=== PATIENT | female | born 1935 | race Caucasian/White ===

== ENCOUNTER → 2016-12-08 | Outpatient (CLI) | payer OTHER, MEDICARE ==
[~2016-12-08] VITALS: Ht 167.6 cm; Wt 71.8 kg
[~2016-12-08] MED LIST: COLACE100 MG PO; DESYREL50 MG PO; DICLOFENAC POTA50 MG PO; EYE DROP FOR GLAUCOM; HYDROCODON-ACE1 EAC8 PO; KEFLEX500 MG PO; METAMUCIL283 GM PO; NEURONTIN 300300 M1 PO; NORTRIPTYLINE H25 M3 PO; SYNTHROID75 MCG PO; TRAMADOL 50 MG50 MG PO; TRAVATAN 0.004%5 ML OP; TRAZODONE HCL50 MG PO; ULTRAM 50MG TAB50 MG PO; VITAMIN D32000 UNIT PO; XALATAN2.5 ML OP; ZANAFLEX4 MG PO
--- NOTE | ~2016-12-08 | HPC ---
[facility] [address] [place] [address] PAIN MANAGEMENT CONSULTATION Name: SHAYDELICIA R Room #: REG CL Agustín#: [id number] Admission: 12/08/16 Attend Phys: Melvin Meyer DO Discharge: Date of : 33 Report #: [id number] THIS REPORT FOR: //name// CC: Melvin MONTALVO BOX Edwardo Box DATE OF SERVICE: 12/08/2016 DATE OF SERVICE: CHIEF COMPLAINT: Mid back pain. HISTORY OF PRESENT ILLNESS: As you know, the patient is an 81-year-old female, who was referred back to our clinic on 11/24/2016 with increasing mid back pain. The patient reported the pain began spontaneously and progressively worsened. She was unable to elicit any specific injury or trauma until later on in our conversation when she indicated that she had a slip and fall injury, falling backwards, where she believes her pain may intent began. She was sent for x-ray imaging for which she returns to review today. There was concern the patient had suffered vertebral compression fractures, given the distribution of symptoms and the fall backwards with instantaneous pain. She was sent for x-ray imaging. She returns today to review the findings. Surprisingly, her pain at today's evaluation is 0/10. She states that the medications provided at her last visit in the form of tizanidine and diclofenac has been successful in alleviating pain. ALLERGIES: No known drug allergies. CURRENT MEDICATIONS: Trazodone, Travatan, levothyroxine, diclofenac and tizanidine. SOCIAL HISTORY: The patient denies tobacco, IV or illicit drug use. Admits to numerous alcohol beverages per day. She is retired. She is unaccompanied today. IMAGING: X-ray of the thoracic spine shows wedging deformities at T6 and T7, which is indicative of a vertebral compression fracture. Alignment appears normal. Vascular calcifications seen throughout. Kyphoplasty changes noted at L2. PHYSICAL EXAMINATION: VITAL SIGNS: Blood pressure 149/79, pulse 65, respiratory rate 20, unlabored. The patient is 100% on room air. Height 5 feet 6 inches tall, weight 158.4 pounds, BMI calculated 25.6. GENERAL: Well-developed, well-nourished, well-hydrated 81-year-old female [place] [id number] PAIN MANAGEMENT CONSULTATION Name: DELICIA DAY Room #: REG [facility]#: [id number] Admission: 12/08/16 Attend Phys: Melvin Meyer DO Discharge: Date of : 33 Report #: [id number] appearing stated age. Pain is rated at 0/10. HEENT: Normocephalic, atraumatic. Pupils equal, round, reactive to light. Extraocular muscles are intact. Sclerae nonicteric, without injection. The patient remains a poor historian. EXTREMITIES: Show no clubbing, no cyanosis, no edema. MUSCULOSKELETAL: There is no palpatory tenderness noted today over the paraspinal musculature of the thoracic spine. There is some spinous process tenderness over the T6, T7 and T8 level. Upper extremity strength, lower extremity strength is symmetrical, intact to light touch from T1 through T12 dermatomes. ASSESSMENT: 1. T6 and T7 vertebral compression fractures. 2. Myofascial pain. 3. Muscle spasms of the thoracic spine. PLAN: 1. The patient has returned today in followup visit where we have reviewed a recent x-ray imaging. Unfortunately, I have to advise the patient that she appears to have suffered compression fractures at T6 and T7. These are mild, but are present. We had a long discussion today about the treatment options for compression fractures of the vertebral spine. These would include physical therapy, stretching exercises, core strengthening and reduction of weight and lifting to reduce this the potential of a recurrent fracture. We discussed TLSO bracing of the prior gold standard of care. We also discussed vertebroplasty and kyphoplasty procedures at this time, the patient wishes to remain conservative. She wishes no interventional treatment. She does not want to begin with a TLSO brace. She states the medication she is on is providing analgesia and she will be "careful." I did advise the patient if she begins to increase back pain, she is to contact her primary care physician to undergo a lateral thoracic x-rays. This will determine if the compression fractures at T6-T7 have progressed or new fractures have developed. As you are aware 2 vertebral compression fractures that are concurrent lead to a 12 fold increase of fractures occurring above or below these fractures spontaneously. We will need to watch for increasing back pain in this patient's case. 2. The patient has diclofenac available as well as tizanidine. She is utilizing the medication appropriately. She does not need refills at this time. 3. We will see the patient back in followup visit on an as needed basis. Again, we have advised the patient if she increases pain, specifically over the mid back area, she is to contact her primary care physician to undergo x-ray imaging as quickly as possible and return to our clinic with findings. By: [id number] 1440 Melvin Meyer DO /nt
[2016-12-08 09:29] VITALS: BP 149/79
== END | disposition home or self-care (01) ==
LOC: PAIN 06:58
DX: S22.060A Wedge compression fracture of T7-T8 vertebra, initial encounter for closed fracture (principal); G89.29 Other chronic pain; M79.1 Myalgia; X58.XXXA Exposure to other specified factors, initial encounter; Y93.89 Activity, other specified; Y92.89 Other specified places as the place of occurrence of the external cause; Y99.8 Other external cause status; Z87.891 Personal history of nicotine dependence

== ENCOUNTER → 2017-01-13 | Outpatient (CLI) | payer OTHER, MEDICARE | LOC: MRI 03:34 | DX: M48.54XA Collapsed vertebra, not elsewhere classified, thoracic region, initial encounter for fracture (principal); M54.10 Radiculopathy, site unspecified ==

== ENCOUNTER → 2017-01-26 | Outpatient (CLI) | payer OTHER, MEDICARE ==
[~2017-01-26] VITALS: Ht 167.6 cm; Wt 68.9 kg
--- NOTE | ~2017-01-26 | HPC ---
[address] [address] PAIN MANAGEMENT CONSULTATION Name: DELICIA DAY Room #: REG [facility]#: [id number] Admission: 01/26/17 Attend Phys: Melvin Meyer DO Discharge: Date of : 33 Report #: [id number] THIS REPORT FOR: //name// CC: Melvin Ornelas MD DATE OF SERVICE: 01/26/2017 DATE OF SERVICE: 01/26/2017 CHIEF COMPLAINT: Mid back pain. HISTORY OF PRESENT ILLNESS: As you know, the patient is an 81-year-old female, who returns today in followup visit with continued mid back pain. She was sent for x-ray imaging last visit where it shows vertebral compression fractures that are healed. She is left with continued mid back pain for which she places pain score today at 0/10. She states when her pain is present, it is sharp and aching in sensation, exacerbated with activity and improves with medications. She indicates no specific injury or trauma to her mid back area, though she does show compression fractures on x-ray imaging, specifically at T6-T7 underlying the exact site of the patient's ongoing pain issues. She returns today to discuss if there are treatment options available to improve her axial mid thoracic pain. ALLERGIES: No known drug allergies. CURRENT MEDICATIONS: Tizanidine 4 mg q. 8 hours p.r.n., diclofenac sodium 50 mg 3 times a day, trazodone 50 mg 2 tabs p.o. at bedtime, travoprost 1 drop each eye per day, levothyroxine 75 mcg per day. SOCIAL HISTORY: The patient denies current tobacco use. Denies IV or illicit drug use. Admits to numerous alcohol beverages per day. She is retired. She is unaccompanied today. IMAGING: X-ray of the thoracic spine obtained 01/13/2017, shows T6 compression fracture appearing chronic, T7 compression fracture appearing chronic. No evidence of acute marrow edema, thoracic cord is normal. Paraspinal musculature normal. PHYSICAL EXAMINATION: VITAL SIGNS: Blood pressure 144/61, pulse 74, respiratory rate 16, unlabored. The patient is 100% on room air, height 5 feet 6 inches tall, weight 152 pounds, BMI calculated 24.5. GENERAL: Well-developed, well-nourished, well-hydrated 81-year-old female appearing stated age, placing current pain score 0/10. [place] [address] PAIN MANAGEMENT CONSULTATION Name: DELICIA DAY Room #: REG CLI [facility]#: [id number] Admission: 01/26/17 Attend Phys: Melvin Meyer DO Discharge: Date of : 33 Report #: [id number] HEENT: Normocephalic, atraumatic. Pupils equal, round, reactive to light. Extraocular muscles are intact. Sclerae nonicteric without injection. NEUROLOGIC: Cranial nerves 2-12 grossly intact. Speech is fluent. The patient deemed a poor historian. LUNGS: Clear, no wheeze, rhonchi or rales. CARDIOVASCULAR: Regular. No appreciable gallop or rub. ABDOMEN: Soft, nontender, nondistended. EXTREMITIES: Show no clubbing, no cyanosis, no edema. MUSCULOSKELETAL: Again, there is palpatory tenderness over the paraspinal musculature of the thoracic region. This appears to be myofascial in origin. There is no spinous process tenderness. No ecchymosis, no changes in skin color, texture over the area of discomfort. Upper extremity strength, lower extremity strength is equal and symmetrical. Deep inhalation and exhalation does not change overall pain. ASSESSMENT: 1. Thoracic myofascial pain. 2. Aged vertebral compression fractures at T6 and T7, muscle spasms of the thoracic spine, chronic intractable pain. PLAN: 1. The patient returns today in followup visit where we have discussed the findings on x-ray imaging. I am pleased to tell the patient, there are no new acute fractures or bony abnormalities. It appears the patient is suffering from chronic issues involving myofascial tissue. I have discussed with the patient that options for treatment would include physical therapy, stretching exercises, core strengthening. This in conjunction with a concerted effort at maintaining exercise programs to maintain strength and mobility. Also changes in her posture on a daily basis should improve symptoms. Obviously medication management appears to be working effectively, as the patient is now placing pain score 0/10. We have discussed this with the patient today. There is no interventional treatments were injections that might help the symptoms, as the patient has well-healed old vertebral compression fractures. 2. The patient will continue on current medication. There is no need for changes at this time. I have offered to the patient a referral to physical therapy. She is going to consider her options. She wishes to discuss further with her PCP in regards to treatment. At this time, no interventional treatments are suggested or recommended. Certainly physical therapy would be beneficial, will be available to have the patient discuss this at followup visit if she wishes. <ELECTRONICALLY SIGNED> By: Melvin Meyer DO 02/03/17 0935 [id number] Melvin Meyer DO /nt
[2017-01-26 09:23] VITALS: BP 144/61
== END | disposition home or self-care (01) ==
LOC: PAIN 06:48
DX: M48.54XA Collapsed vertebra, not elsewhere classified, thoracic region, initial encounter for fracture (principal); M62.838 Other muscle spasm; G89.29 Other chronic pain; Z87.891 Personal history of nicotine dependence

== ENCOUNTER → 2017-04-08 | Outpatient (CLI) | payer OTHER, MEDICARE | LOC: MRI 12:30 | DX: S83.242A Other tear of medial meniscus, current injury, left knee, initial encounter (principal); M17.12 Unilateral primary osteoarthritis, left knee; M25.462 Effusion, left knee; M71.22 Synovial cyst of popliteal space [Baker], left knee; X58.XXXA Exposure to other specified factors, initial encounter; Y93.89 Activity, other specified; Y92.89 Other specified places as the place of occurrence of the external cause; Y99.8 Other external cause status ==

== ENCOUNTER 2017-04-20 06:54 | Day surgery (SDC) | payer OTHER, MEDICARE ==
[~2017-04-20] VITALS: Ht 167.6 cm; Wt 70.3 kg
--- NOTE | ~2017-04-20 | O ---
[facility] [place] [address] [place] [address] OPERATIVE REPORT Name: DELICIA DAY Room #: 150-10 [facility]..#: [id number] Admission: 04/20/17 Attend Phys: Johny Ramirez MD Discharge: Date of : 33 Report #: [id number] THIS REPORT FOR: //name// CC: Edwardo Ramirez DATE OF SERVICE: 04/20/2017 PREOPERATIVE DIAGNOSIS: Left knee medial meniscus tear. 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 PROCEDURE: Left knee arthroscopy and chondroplasty medial femoral condyle. SURGEON: Johny Ramirez MD. ACCESS TECH: BARRY Pro. ANESTHETIC: Spinal. INDICATIONS: See hospital history and physical. DESCRIPTION OF PROCEDURE: After adequate general anesthesia had been obtained, the patient's left lower extremity was prepped and draped in the usual meticulous sterile fashion. Limb was exsanguinated with gravity, tourniquet inflated to 350 torr. Superomedial portal was established by first infiltrating with 0.5% Naropin, then making a stab incision with an 11 blade. Inflow cannula placed. The knee was insufflated with fluid. Anterolateral and anteromedial portals were established utilizing the same technique. Complete diagnostic arthroscopy was performed. Medial compartment demonstrated a flap tear posterior horn of the meniscus. This was debrided with baskets and suyapa to a stable rim. 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 This lesion was smoothed with a shaver. Cruciate ligaments were intact. Lateral compartment unremarkable. Patellofemoral compartment demonstrated minor surface wear, but no unstable chondral fragments. At this time, the knee was irrigated copiously and 0.5% Naropin was infiltrated [address] [address] OPERATIVE REPORT Name: DELICIA DAY Room #: 150-10 [facility]#: [id number] Admission: 04/20/17 Attend Phys: Johny Ramirez MD Discharge: Date of : 33 Report #: [id number] in the knee. The portals were closed with 4-0 nylon. Sterile compressive was complied. Tourniquet deflated. By: 1516 1531 Johny Ramirez MD /nt
[~2017-04-20 06:54] MED LIST changes: +HYDROCODONE-AP1 EAC6 PO; +LEVOTHYROXINE 0.1 MG PO; +NABUMETONE 500500 M1 PO; +VITAMIN D1000 UNI1 PO
[2017-04-20 12:30] VITALS: BP 165/69
[2017-04-20 13:58] LABS: PROTIME 10.4 Seconds (9.3-11.4)
[2017-04-20 15:47] VITALS: BP 165/69
[2017-04-20 17:25] VITALS: BP 179/62
[2017-04-20 19:41] VITALS: BP 166/65
== END 2017-04-20 21:00 | disposition home or self-care (01) ==
LOC: OR 06:54 → TBA 06:54 → OR 09:50 → 3N 17:24 → OR 21:00
PROVIDERS: Anesthesiology
DX: S83.242A Other tear of medial meniscus, current injury, left knee, initial encounter (principal); M94.262 Chondromalacia, left knee; X58.XXXA Exposure to other specified factors, initial encounter; Y93.89 Activity, other specified; Y92.89 Other specified places as the place of occurrence of the external cause; Y99.8 Other external cause status
CPT/HCPCS: 50101; 50405; 50612; 51038; 54170; 56526; 62110; 62850; 65085; 70005

== ENCOUNTER → 2017-06-07 | Outpatient (CLI) | payer OTHER, MEDICARE | LOC: HYPER 06-04 09:56 | DX: T81.31XA Disruption of external operation (surgical) wound, not elsewhere classified, initial encounter (principal); L97.512 Non-pressure chronic ulcer of other part of right foot with fat layer exposed; M19.90 Unspecified osteoarthritis, unspecified site; F32.9 Major depressive disorder, single episode, unspecified; Z98.49 Cataract extraction status, unspecified eye; Z87.891 Personal history of nicotine dependence; Z72.89 Other problems related to lifestyle; Y83.8 Other surgical procedures as the cause of abnormal reaction of the patient, or of later complication, without mention of misadventure at the time of the procedure; Y92.89 Other specified places as the place of occurrence of the external cause ==

== ENCOUNTER → 2017-06-15 | Outpatient (CLI) | payer OTHER, MEDICARE | LOC: HYPER 07:06 | DX: T81.31XD Disruption of external operation (surgical) wound, not elsewhere classified, subsequent encounter (principal); L97.512 Non-pressure chronic ulcer of other part of right foot with fat layer exposed; M19.90 Unspecified osteoarthritis, unspecified site; F32.9 Major depressive disorder, single episode, unspecified; Z98.49 Cataract extraction status, unspecified eye; Z87.891 Personal history of nicotine dependence; Z72.89 Other problems related to lifestyle; Y83.8 Other surgical procedures as the cause of abnormal reaction of the patient, or of later complication, without mention of misadventure at the time of the procedure ==

== ENCOUNTER → 2017-06-21 | Outpatient (CLI) | payer OTHER, MEDICARE | LOC: HYPER 06:57 | DX: T81.31XD Disruption of external operation (surgical) wound, not elsewhere classified, subsequent encounter (principal); L97.512 Non-pressure chronic ulcer of other part of right foot with fat layer exposed; M19.90 Unspecified osteoarthritis, unspecified site; F32.9 Major depressive disorder, single episode, unspecified; Z98.49 Cataract extraction status, unspecified eye; Z87.891 Personal history of nicotine dependence; Z72.89 Other problems related to lifestyle; Y83.8 Other surgical procedures as the cause of abnormal reaction of the patient, or of later complication, without mention of misadventure at the time of the procedure ==

== ENCOUNTER → 2017-07-05 | Outpatient (CLI) | payer OTHER, MEDICARE | LOC: HYPER 06:58 | DX: T81.31XA Disruption of external operation (surgical) wound, not elsewhere classified, initial encounter (principal); L97.512 Non-pressure chronic ulcer of other part of right foot with fat layer exposed; F32.9 Major depressive disorder, single episode, unspecified; M19.90 Unspecified osteoarthritis, unspecified site; Z87.891 Personal history of nicotine dependence; Z72.89 Other problems related to lifestyle; Y83.8 Other surgical procedures as the cause of abnormal reaction of the patient, or of later complication, without mention of misadventure at the time of the procedure ==

== ENCOUNTER 2018-07-29 08:14 | Emergency (ER) | payer OTHER, MEDICARE ==
[~2018-07-29] VITALS: Ht 167.6 cm; Wt 70.3 kg
[2018-07-29] MEDS ORDERED: TRAMADOL 50 MG50 MG PO (09:09)
[2018-07-29] MEDS ORDERED: KEFLEX500 M1 PO (09:09)
[2018-07-29 09:37] VITALS: BP 121/87
== END 2018-07-29 09:38 | disposition home or self-care (01) ==
LOC: ER 08:14
DX: M67.471 Ganglion, right ankle and foot (principal); E03.9 Hypothyroidism, unspecified; Z87.891 Personal history of nicotine dependence; Z90.49 Acquired absence of other specified parts of digestive tract; Z90.89 Acquired absence of other organs; Z90.710 Acquired absence of both cervix and uterus; Z98.890 Other specified postprocedural states

== ENCOUNTER → 2019-07-25 | Outpatient (CLI) | payer OTHER, MEDICARE ==
[~2019-07-25] MED LIST changes: +KEFLEX500 M1 PO
== END ==
LOC: MRI 10:05
DX: M47.816 Spondylosis without myelopathy or radiculopathy, lumbar region (principal); M51.25 Other intervertebral disc displacement, thoracolumbar region; M51.26 Other intervertebral disc displacement, lumbar region; M12.88 Other specific arthropathies, not elsewhere classified, other specified site; M48.062 Spinal stenosis, lumbar region with neurogenic claudication; M25.78 Osteophyte, vertebrae

== ENCOUNTER → 2019-10-17 | Outpatient (CLI) | payer OTHER, MEDICARE ==
--- NOTE | ~2019-10-17 | EKG ---
[facility] [place] [address] [facility] [place] [address] ELECTROCARDIOGRAM REPORT Name: SHAYSLICKDELICIA R Room #: REG CLI [facility].#: [id number] Admission: 10/17/19 Attend Phys: Edwardo Ornelas MD Discharge: Date of : 33 Report #: [id number] THIS REPORT FOR: cc: Edwardo Ornelas MD, Mark S. MD Epiphany,Gilbert GAUTAM ~ THIS REPORT FOR: //name// [facility] Test Date: 2019-10-17 Test Time: 11:38:45 Pat Name: DELICIA DAY Department: Room: Gender: F Reading Interventionist: Angelica TERRY : 1935 Requested By: Edwardo Ornelas Order Number: [id number] MD: Measurements Intervals Strang Rate: 66 P: 72 OR: 199 QRS: 71 QRSD: 137 T: 26 QT: 446 QTc: 468 Interpretive Statements Sinus arrhythmia Right bundle branch block Compared to ECG 10/30/2015 10:28:57 Sinus rhythm no longer present [email or web address] By: 1138 1138 Epiphany MD Gilbert /EPI
== END ==
LOC: CV 11:09
DX: Z01.818 Encounter for other preprocedural examination (principal)

== ENCOUNTER → 2021-07-23 | Day surgery (SDC) | payer OTHER, MEDICARE ==
[~2021-07-23] VITALS: Ht 167.6 cm; Wt 69.9 kg
[~2021-07-23] MED LIST changes: +HYDROCODON-ACE1 EAC7 PO; +LEVOTHYROXINE75 MCG PO; +NORVASC5 MG PO; +PRESERVISION A1 EAC2 PO; +TIMOLOL MALEATE5 M1 OPHTHALMIC
--- NOTE | ~2021-07-23 | O ---
[facility] [place] [address] OPERATIVE REPORT Name: DELICIA DAY Room #: REG [facility].#: [id number] Admission: 07/23/21 Attend Phys: Ángel Segura MD Discharge: Date of : 33 Report #: [id number] THIS REPORT FOR: cc: Hollie Dietrich MD, Cora A. MD Franey,Ángel Pimentel MD ~ cc: Hollie Dietrich MD DATE OF SERVICE: 07/23/2021 PATIENT OF: Dr. Ángel Segura and Dr. Hollie Dietrich PREOPERATIVE DIAGNOSIS: Right inguinal hernia. POSTOPERATIVE DIAGNOSIS: Right inguinal hernia. PROCEDURE: Right inguinal hernia repair with Prolene hernia system mesh. SURGEON: Ángel Segura MD ANESTHESIA USED: Local IV sedation. DESCRIPTION OF PROCEDURE: The patient was brought to the operating room and placed on the operating table in the supine position. Sequential compression devices were placed for DVT prophylaxis. There was no indication for preoperative antibiotics. The patient underwent IV sedation. The right inguinal area was prepped and draped in a sterile fashion. Skin and subcutaneous tissue were then infiltrated with 0.5% Marcaine and 1% Xylocaine with epinephrine. A right inguinal skin incision was then performed using #10 scalpel blade. Hemostasis obtained using the electrocautery. Dissection was carried down through subcutaneous tissue using electrocautery and further hemostasis was obtained using clamps and 2-0 chromic ties. The external oblique fascia was then identified and incised with a knife and opened with the Metzenbaum scissors. The ilioinguinal nerve was identified, dissected free, injected with a local mixture and preserved. The inguinal canal was inspected and there was an indirect inguinal hernia with some preperitoneal fat extruding through the hernia defect. This was dissected free and reduced back through the internal ring. A large Prolene hernia system mesh was then inserted through the internal ring and the underlay patch was then deployed in the preperitoneal space. Connector was left in the internal ring. The floor was then tightened around the connector using running 2-0 Prolene 2-layer Bassini repair. The overlay patch was then secured to the pubic tubercle using the same running 2-0 Prolene suture. The mesh was then secured superiorly at the connector and inferiorly with simple interrupted 2-0 Vicryl sutures. The ilioinguinal nerves were then returned to the canal intact and the external oblique fascia was then closed using a running 2-0 Vicryl suture. Sophia's fascia was then [facility] [address] [place] [address] OPERATIVE REPORT Name: DELICIA DAY Room #: REG [facility].#: [id number] Admission: 07/23/21 Attend Phys: Ángel Segura MD Discharge: Date of : 33 Report #: [id number] reapproximated using 3 simple interrupted 2-0 chromic sutures and the skin then closed with a running 4-0 subcuticular Vicryl stitch. The wound was then dressed with Mastisol, 1/2-inch Steri-Strips cut in half, Telfa, 4 x 4 gauze, sponge, and tape. The patient was then awakened from the IV sedation and taken to recovery room awake, alert and in good condition. Estimated blood loss was approximately 5 mL and the patient tolerated the procedure well. All sponge, lap and instrument counts were correct x2. By: 1041 1109 Ángel Segura MD /nt
[2021-07-23 09:00] VITALS: BP 141/88
--- NOTE | 2021-07-23 10:23 | EKG ---
[place] [address] [facility] [employer] [place] [address] ELECTROCARDIOGRAM REPORT Name: DELICIA DAY Room #: REG [facility]#: [id number] Admission: 07/23/21 Attend Phys: Ángel Segura MD Discharge: Date of : 33 Report #: [id number] [facility] Test Date: 2021-07-23 Test Time: 08:45:49 Pat Name: DELICIA DAY Department: Room: Gender: F Trawl Net Maker: ROSALIO : 1935 Requested By: Ángel Segura Order Number: [id number] MD: Derrick Aranda Measurements Intervals Ephraim Rate: 60 P: 65 LA: 190 QRS: 40 QRSD: 136 T: -15 QT: 434 QTc: 434 Interpretive Statements Pacemaker spikes or artifacts Sinus rhythm Right bundle branch block Compared to ECG 10/17/2019 11:38:45 Sinus arrhythmia no longer present Electronically Signed On 07-23-2021 10:23:24 MIXER RUNNER by Derrick Aranda [email or web address] <ELECTRONICALLY SIGNED> By: Derrick Aranda MD, [facility] 07/23/21 1023 0845 0845 Derrick Aranda MD, FACC /EPI
[2021-07-23 12:02] VITALS: BP 141/88
== END | disposition home or self-care (01) ==
LOC: OR 07:32
PROVIDERS: ATTEND Surgery
DX: K40.90 Unilateral inguinal hernia, without obstruction or gangrene, not specified as recurrent (principal); H40.9 Unspecified glaucoma; E03.9 Hypothyroidism, unspecified; Z98.890 Other specified postprocedural states; Z79.899 Other long term (current) drug therapy; Z98.41 Cataract extraction status, right eye; Z98.42 Cataract extraction status, left eye; Z90.710 Acquired absence of both cervix and uterus; Z87.891 Personal history of nicotine dependence
CPT/HCPCS: 50010; 50101; 50386; 50403; 56524; 56525; 56526; 56528; 58647; 62110; 62850; 70005